=== PATIENT | male | born 1950 | race Caucasian/White ===

== ENCOUNTER → 2018-01-29 09:33 | Outpatient (CLI) | payer MEDICARE | END | disposition home or self-care (01) | LOC: D.CT 09:33 | DX: R93.8 Abnormal findings on diagnostic imaging of other specified body structures (principal) ==

== ENCOUNTER 2019-10-17 18:57 | Emergency (ER) | payer MEDICARE ==
[~2019-10-17] VITALS: Ht 175.3 cm; Wt 87.3 kg
[2019-10-17 19:26] VITALS: Ht 175.3 cm; Wt 87.3 kg
[2019-10-17] MEDS ORDERED: COLACE100 MG PO (20:16)
[2019-10-17] MEDS ORDERED: MIRALAX17 GM PO (20:16)
[2019-10-17] MEDS ORDERED: FLOMAX0.4 MG PO (20:32)
[2019-10-17] MEDS ORDERED: SMZ-TMP DS 800-1 TAB PO (20:32)
[2019-10-17 20:56] VITALS: BP 142/72
== END 2019-10-17 21:00 | disposition home or self-care (01) ==
LOC: D.ER 18:57
DX: K56.41 Fecal impaction (principal); R33.9 Retention of urine, unspecified

== ENCOUNTER 2020-01-23 16:23 | Inpatient (IN) | payer MEDICARE ==
[~2020-01-23] VITALS: Ht 175.3 cm; Wt 78.0 kg
--- NOTE | ~2020-01-23 | OP ---
PATIENT NAME: JEFFREY NORWOOD MEDICAL RECORD: [id number] :46 LOCATION:D.MS [id number] ADMISSION DATE:01/23/20 SURGEON: DILAN TRUONG MD DATE OF OPERATION: 01/24/2020 PREOPERATIVE DIAGNOSES: 1. Bilateral lower back abscesses. 2. Chronic perineal skin wounds. 3. Hypertension. 4. Dyslipidemia. 5. Gastroesophageal reflux disease. 6. Rheumatoid arthritis. POSTOPERATIVE DIAGNOSES: 1. Bilateral lower back abscesses. 2. Chronic perineal skin wounds. 3. Hypertension. 4. Dyslipidemia. 5. Gastroesophageal reflux disease. 6. Rheumatoid arthritis. PROCEDURE: 1. I&D of bilateral lower back abscesses. 2. Perineal skin biopsies. SURGEON: Dilan Truong MD REPORT OF PROCEDURE: The patient was placed on the right lateral decubitus position and the back and perineal region were prepped and draped in sterile fashion. The patient had fluctuant, erythematous wounds/masses on the bilateral lower back. Knife was used to make transverse incision through these areas of fluctuance and there was a gross amount of purulent material encountered. Cultures were taken from each of these abscess pockets. We were able to feel around these pockets and eventually clean these all out and then irrigate with peroxide and saline solution. I then packed both wounds with 1/2 inch iodoform packing strips and cover these with clean gauze. On the buttock, especially on the right medial buttock, there was chronic ulcerated wounds present. A skin biopsy was taken of the edge of this ulcerated wound extending down into the wound bed. Any bleeding from this was treated with electrocautery. COMPLICATIONS: None. CONDITION: Stable. ANESTHESIA: General endotracheal. BLOOD LOSS: Minimal. TRANSINT:[id number] Voice Confirmation ID: [id number] DOCUMENT ID: [id number] OPERATIVE REPORT [id number] NORWOODJEFFREY GOMEZ DILAN TRUONG MD CC: INGRID PATRICIA [id number] DICTATION DATE: 01/24/20 1616 ELECTRIC RAZOR MECHANIC: 01/25/20 0045 ADM IN [place] [id number] [place] [id number]
[~2020-01-23 16:23] MED LIST: COLACE100 MG PO; FLOMAX0.4 MG PO; MIRALAX17 GM PO; SMZ-TMP DS 800-1 TAB PO
--- NOTE | 2020-01-23 16:40 | NUR ---
RECEIVED PATIENT A DIRECT ADMIT. ALERT AND ORIENTED. UP AD KASSI. NO S/S OF ACUTE DISTRESS NOTED. CALL LIGHT IN REACH. WILL CONTINUE TO MONITOR.
[2020-01-23] MEDS ORDERED: HYDROXYCHLOROQ200 MG PO (16:45)
[2020-01-23] MEDS ORDERED: ASPIRIN81 MG PO (16:46)
[2020-01-23] MEDS ORDERED: LOSARTAN-HCTZ1 EAC1 PO (16:48)
[2020-01-23] MEDS ORDERED: COZAAR25 MG PO (16:49)
[2020-01-23] MEDS ORDERED: NEURONTIN 300300 MG PO (16:50)
[2020-01-23] MEDS ORDERED: OMEPRAZOLE40 MG PO (17:16)
[2020-01-23 18:29] LABS: HEMATOCRIT 34.5 % (42.0-54.0); HEMOGLOBIN 11.7 g/dL (13.5-17.5); MCH 30.9 pg (26.0-34.0); MCHC 33.9 g/dL (31.0-37.0); MEAN PLATELET VOLUME 7.9 fL (7.4-10.4); PLATELET COUNT 353 10x3/uL (130-400); RBC 3.79 10x6/uL (4.20-6.10); WBC 22.6 10x3/uL (4.8-10.8)
--- NOTE | 2020-01-23 18:38 | NUR ---
RESTING IN BED WITH EYES OPEN. FAMILY AT BEDSIDE. NO C/O PAIN. NO S/S OF ACUTE DISTRESS NOTED. DENIES ANY NEEDS AT THIS TIME. CALL LIGHT IN REACH. WILL CONTINUE TO MONITOR.
[2020-01-23 18:40] LABS: ANION GAP 12.9 mmol/L (8-16); CALCIUM 8.2 mg/dL (8.5-10.1); CARBON DIOXIDE 25.5 mmol/L (21.0-32.0); CREATININE - SERUM 1.4 mg/dL (0.6-1.3); POTASSIUM - SERUM 4.4 mmol/L (3.5-5.1)
[2020-01-23 18:46] LABS: ALBUMIN 2.4 g/dL (3.4-5.0); BILIRUBIN - TOTAL 0.25 mg/dL (0.2-1.3); PROTEIN - SERUM 5.9 g/dL (6.4-8.2)
[2020-01-23 18:53] LABS: LYMPHOCYTES 9 % (15-50); MONOCYTES 1 % (2-11); NEUTROPHILS 86 % (40-80)
[2020-01-23 18:54] LABS: PLATELET ESTIMATE NORMAL
[2020-01-23 19:46] VITALS: BP 121/60; BMI 25.4
[2020-01-23 20:00] VITALS: BP 110/48
[2020-01-23 21:10] LABS: BILIRUBIN NEGATIVE (NEGATIVE); GLUCOSE NEGATIVE (NEGATIVE); KETONE NEGATIVE (NEGATIVE); NITRITE NEGATIVE (NEGATIVE); UROBILINOGEN NORMAL (NORMAL)
[2020-01-24] VITALS (12 sets, daily range): BP systolic 84–134; BP diastolic 31–64; Ht 175.3 cm; Wt 78.0 kg
--- NOTE | 2020-01-24 04:06 | NUR ---
ASSESSED AT THE BEGINNING OF THE SHIFT. PT IS ALERT AND ORIENTED, ABLE TO VERBALZIE NEEDS. ASSESSED HIS BUTTOCKS AND LOWER BACK FOR THE RAISED AREAS THAT ARE INFECTED. HE IS ABLE TO GET UP TO THE BATHROOM SAFELY AND ALSO WAS GIVEN A URINAL. AT THE BEGINNING OF THE SHIFT. HE WAS SEEN BY JEFF MORALES ORDERS NOTED. PAIN MEDS WERE GIVEN WHEN REQUESTED AND HE HAS BEEN QUIET IN BED DURING THE NIGHT.
--- NOTE | 2020-01-24 06:29 | NUR ---
AWAKE WATCHING THE WEATHER WITH NO COMPLAINTS VOICED.
[2020-01-24 07:22] LABS: APTT 25.7 SECONDS (22.8-39.4); INR 1.03 (0.85-1.17); PROTIME 13.5 SECONDS (11.6-15.0)
[2020-01-24 07:26] LABS: ANION GAP 12.6 mmol/L (8-16); CALCIUM 8.6 mg/dL (8.5-10.1); CARBON DIOXIDE 27.9 mmol/L (21.0-32.0); CREATININE - SERUM 1.2 mg/dL (0.6-1.3); MAGNESIUM - SERUM 1.5 mg/dL (1.8-2.4); PHOSPHOROUS 3.5 mg/dL (2.5-4.9); POTASSIUM - SERUM 4.5 mmol/L (3.5-5.1)
[2020-01-24 07:43] LABS: HEMATOCRIT 34.3 % (42.0-54.0); HEMOGLOBIN 11.5 g/dL (13.5-17.5); MCHC 33.5 g/dL (31.0-37.0); MCV 92.5 fL (80.0-100.0); MEAN PLATELET VOLUME 8.1 fL (7.4-10.4); PLATELET COUNT 386 10x3/uL (130-400); RBC 3.71 10x6/uL (4.20-6.10); RDW 15.2 % (11.5-14.5); WBC 20.7 10x3/uL (4.8-10.8)
[2020-01-24 08:03] LABS: EOSINOPHILS 1 % (0-7); LYMPHOCYTES 10 % (15-50); NEUTROPHILS 84 % (40-80); PLATELET ESTIMATE NORMAL
--- NOTE | 2020-01-25 02:11 | NUR ---
I have reviewed this patient and I concur with the Shift Assessment completed by the Licensed Practical Nurse today this shift.
[2020-01-25 07:05] LABS: BASOPHILS 0.3 % (0-2); EOSINOPHILS 1.2 % (0-7); HEMATOCRIT 30.9 % (42.0-54.0); HEMOGLOBIN 10.2 g/dL (13.5-17.5); IMMATURE GRANULOCYTES 2.1 % (0-5); MCH 30.1 pg (26.0-34.0); MCV 91.2 fL (80.0-100.0); MEAN PLATELET VOLUME 8.2 fL (7.4-10.4); MONOCYTES 8.3 % (2-11); NEUTROPHILS 77.1 % (40-80); PLATELET COUNT 329 10x3/uL (130-400); RBC 3.39 10x6/uL (4.20-6.10)
[2020-01-25 07:10] LABS: WBC 14.9 10x3/uL (4.8-10.8)
[2020-01-25 07:30] LABS: CALC OSMOLALITY 266 mosm/kg (275-300); CARBON DIOXIDE 24.2 mmol/L (21.0-32.0); CHLORIDE - SERUM 100 mmol/L (98-107); GLUCOSE 107 mg/dL (74-106); MAGNESIUM - SERUM 1.5 mg/dL (1.8-2.4); PHOSPHOROUS 3.3 mg/dL (2.5-4.9); SODIUM 133 mmol/L (136-145); eGFR NON AFRICAN AMERICAN 78 mL/min (90-120)
[2020-01-25 07:48] LABS: UREA NITROGEN 14 mg/dL (7-18)
--- NOTE | 2020-01-25 08:26 | NUR ---
RESTING IN BED, NO DISTRESS NOTED, ASKING ABOUT AM MEAL, DRESSING TO BUTTOCKS DRY AND INTACT, IV INFUSING,
[2020-01-25 09:57] VITALS: BP 120/54
[2020-01-25 14:09] VITALS: BP 130/53
[2020-01-25 17:04] VITALS: BP 123/84
--- NOTE | 2020-01-25 19:00 | NUR ---
ANSWERED PATIENT CALL LIGHT. PATIENT ALERT AND ORIENTED AND ASKING ABOUT GOING HOME. PATIENT READY TO GO HOME. PATIENT MENTIONED "LEAVING TOMORROW WHETHER THEY WANT ME TO OR NOT." EXPLAINED AMA STATUS TO PATIENT. PATIENT VERBALIZES UNDERSTANDING, STATES HE IS JUST STIR CRAZY AND WOULD RATHER "DEAL WITH THESE WOUNDS" OUTPATIENT. ENCOURAGED PATIENT TO TALK TO NURSE PRACTITIONER OR PHYSICIAN IN THE MORNING. NEW ORDER FOR DRESSING CHANGES PUT IN, REMOVED PACKING PER ORDER AND DRESSED PER ORDER. PATIENT DENIES FURTHER NEEDS AT THIS TIME. CALL LIGHT REMAINS CLOSE TO PATIENT. CPOC.
[2020-01-25 21:00] VITALS: BP 126/59
--- NOTE | 2020-01-25 21:30 | NUR ---
ADMINISTERED HS MEDICATIONS. PATIENT TOLERATED WELL. DENIES FURTHER NEEDS AT THIS TIME. CALL LIGHT CLOSE. CPOC.
--- NOTE | 2020-01-26 00:56 | NUR ---
RESTING WITH NO SIGNS OR SYMPTOMS OF DISTRESS AT THIS TIME. RESPIRATIONS ARE EVEN AND UNLABORED. CALL LIGHT CLOSE. CPOC.
[2020-01-26 05:35] LABS: BASOPHILS 0.3 % (0-2); EOSINOPHILS 1.6 % (0-7); HEMATOCRIT 31.3 % (42.0-54.0); HEMOGLOBIN 10.5 g/dL (13.5-17.5); IMMATURE GRANULOCYTES 2.2 % (0-5); LYMPHOCYTES 12.1 % (15-50); MCH 30.5 pg (26.0-34.0); MCHC 33.5 g/dL (31.0-37.0); MONOCYTES 8.7 % (2-11); NEUTROPHILS 75.1 % (40-80); PLATELET COUNT 306 10x3/uL (130-400); RBC 3.44 10x6/uL (4.20-6.10); RDW 14.7 % (11.5-14.5); WBC 14.8 10x3/uL (4.8-10.8)
[2020-01-26 06:01] LABS: CALC OSMOLALITY 266 mosm/kg (275-300); CALCIUM 8.2 mg/dL (8.5-10.1); CARBON DIOXIDE 23.5 mmol/L (21.0-32.0); CHLORIDE - SERUM 101 mmol/L (98-107); CREATININE - SERUM 0.8 mg/dL (0.6-1.3); GLUCOSE 96 mg/dL (74-106); MAGNESIUM - SERUM 1.5 mg/dL (1.8-2.4); PHOSPHOROUS 3.9 mg/dL (2.5-4.9); SODIUM 134 mmol/L (136-145); eGFR NON AFRICAN AMERICAN > 90 mL/min (90-120)
[2020-01-26 06:11] LABS: UREA NITROGEN 9 mg/dL (7-18)
[2020-01-26 09:01] VITALS: BP 127/54
[2020-01-26 12:25] VITALS: BP 134/60
--- NOTE | 2020-01-26 13:54 | NUR ---
PT ALERT X 4. INSISTING HE NEEDS TO GO HOME TODAY. DRESSINGS CHANGED ON BUTTOCKS. FAMILY AT BEDSIDE. BED LOW, CALL LIGHT IN REACH. NO OTHER NEEDS AT THIS TIME.
[2020-01-26] MEDS ORDERED: BACTRIM DS TAB1 EAC1 PO (14:23)
--- NOTE | 2020-01-26 15:49 | MORECARE ---
CASE MANAGEMENT DISCHARGE SUMMARY PATIENT: JEFFREY NORWOOD UNIT: [id number] ADM DATE: 01/23/20 AGE: 69 : 48 SEX: M ROOM/BED: D.2208 AUTHOR: LIZ BOX PHYSICIAN: REFERRING PHYSICIAN: INGRID PATRICIA MD DATE OF SERVICE: 01/26/20 Discharge Plan Patient Name: JEFFREY NORWOOD [facility] [facility] 1950 Planned Disposition: Home with Home Health Anticipated Discharge Date: Discharge Date: Expected LOS: Initial Reviewer: [email or web address] Initial Review Date: 01/23/2020 Generated: 01/26/20 4:48 pm DCPIA - Discharge Planning Initial Assessment Updated by [email or web address]: Delmy Arias on 01/26/20 3:46 pm * Is the patient Alert and Oriented? Yes * How many steps to enter\exit or inside your home? 0/0 * PCP bruce * [facility] * ADLs Independent * Equipment None * Community resources currently utilized None * Additional services required to return to the preadmission environment? Yes * Can the patient safely return to the preadmission environment? Yes * Has this patient been hospitalized within the prior 30 days at any hospital? No Patient Name: JEFFREY NORWOOD Page 22431 at 1549 All edits/amendments must be made on the electronic document DICTATION DATE: 01/26/20 1548 COLLECTION ANALYST: SAÚL 01/26/20 1548 RPT#: [id number] DC DATE: STATUS: ADM IN [facility] [address] [place] [address] END OF REPORT
--- NOTE | 2020-01-26 16:19 | MORECARE ---
CASE MANAGEMENT DISCHARGE SUMMARY PATIENT: JEFFREY NORWOOD UNIT: [id number] ADM DATE: 01/23/20 AGE: 69 : 48 SEX: M ROOM/BED: D.2204 AUTHOR: ISAURO,DOC PHYSICIAN: REFERRING PHYSICIAN: INGRID PATRICIA MD DATE OF SERVICE: 01/26/20 Discharge Plan Patient Name: JEFFREY NORWOOD Facility: [facility]:[place] : 1950 Planned Disposition: Home with Home Health Anticipated Discharge Date: Discharge Date: Expected LOS: Initial Reviewer: [id number] Initial Review Date: 01/23/2020 Generated: 01/26/20 5:18 pm Comments DCP- Discharge Planning Updated by [email or web address]: Delmy Arias on 01/26/20 3:[address] Patient Name: JEFFREY NORWOOD Admission Status: Elective Accout number: [id number] Admission Date: 01-23-2020 : 1950 Admission Diagnosis: Attending: INGRID PATRICIA Current LOS: 3 Anticipated DC Date: Planned Disposition: Home with Home Health Primary Insurance: MEDICARE A & B Discharge Planning Comments: CM met with patient to complete initial dc planning assessment. CM educated patient on the CM role and verbal consent given by patient to complete assessment. CM verified patient's address, phone number, and emergency contact phone numbers. Patient lives at home alone and is independent. At discharge patient plans to return home and feels this is a safe discharge. CM discussed availability of home health, rehab services, and medical equipment. Pt is in agreement to have [facility] provide wound care. JADEN verbalized. CM called Sissy at [facility] and faxed clinicals. [facility] states they will at Patient denied known discharge needs at this time. DC IMM delivered. Transportation provider at discharge will be . CM will continue to follow and will assist as needed with dc plans/needs. Computer Systems Software Architect: Delmy Arias DCPIA - Discharge Planning Initial Assessment Updated by [email or web address]: Delmy Arias on 01/26/20 3:46 pm * Is the patient Alert and Oriented? Yes * How many steps to enter\exit or inside your home? 0/0 * PCP bruce * Pharmacy [facility] * ADLs Independent * Equipment None * Community resources currently utilized None * Additional services required to return to the preadmission environment? Yes * Can the patient safely return to the preadmission environment? Yes * Has this patient been hospitalized within the prior 30 days at any hospital? No External Providers [facility] Next Contact Date: Service Request Date: Service Type: Resolution: Reviewer: Comments: Last DP export: 01/26/20 2:48 p Patient Name: JEFFREY NORWOOD Page 82896 at 1619 All edits/amendments must be made on the electronic document DICTATION DATE: 01/26/201618 SERICULTURIST: SAÚL 01/26/201618 RPT#: [id number] DC DATE: STATUS: ADM IN [facility] [address] [place] [address] END OF REPORT
--- NOTE | 2020-01-26 16:43 | NUR ---
DISCHARGE PAPERWORK SIGNED, ALL QUESTIONS ANSWERED. IV TO LEFT FOREARM DC'D, TIP INTACT. ESCORTED OUT VIA WHEELCHAIR.
--- NOTE | 2020-01-27 14:31 | MORECARE ---
CASE MANAGEMENT DISCHARGE SUMMARY PATIENT: JEFFREY NORWOOD UNIT: [id number] ADM DATE: 01/23/20 AGE: 69 : 48 SEX: M ROOM/BED: D.2209 AUTHOR: ISAURO,DOC PHYSICIAN: REFERRING PHYSICIAN: INGRID PATRICIA MD DATE OF SERVICE: 01/27/20 Discharge Plan Patient Name: JEFFREY NORWOOD Facility: [facility]:[place] : 1950 Planned Disposition: Home with Home Health Anticipated Discharge Date: Discharge Date: 01/26/2020 Expected LOS: Initial Reviewer: [email or web address] Initial Review Date: 01/23/2020 Generated: 01/27/20 3:30 pm Comments DCP- Discharge Planning Updated by [email or web address]: Delmy Arias on 01/26/20 3:[address] Patient Name: JEFFREY NORWOOD Admission Status: Elective Accout number: [id number] Admission Date: 01-23-2020 : 1950 Admission Diagnosis: Attending: INGRID PATRICIA Current LOS: 3 Anticipated DC Date: Planned Disposition: Home with Home Health Primary Insurance: MEDICARE A & B Discharge Planning Comments: CM met with patient to complete initial dc planning assessment. CM educated patient on the CM role and verbal consent given by patient to complete assessment. CM verified patient's address, phone number, and emergency contact phone numbers. Patient lives at home alone and is independent. At discharge patient plans to return home and feels this is a safe discharge. CM discussed availability of home health, rehab services, and medical equipment. Pt is in agreement to have [facility] provide wound care. RONALD verbalized. CM called Sissy at [facility] and faxed clinicals. [facility] states they will at Patient denied known discharge needs at this time. DC IMM delivered. Transportation provider at discharge will be . CM will continue to follow and will assist as needed with dc plans/needs. Electron Beam Machine Welder Setter: Delmy Arias DCPIA - Discharge Planning Initial Assessment Updated by [email or web address]: Delmy Arias on 01/26/20 3:46 pm * Is the patient Alert and Oriented? Yes * How many steps to enter\exit or inside your home? 0/0 * PCP bruce * [facility] * ADLs Independent * Equipment None * Community resources currently utilized None * Additional services required to return to the preadmission environment? Yes * Can the patient safely return to the preadmission environment? Yes * Has this patient been hospitalized within the prior 30 days at any hospital? No Coverage Notice Reviewer: [email or web address] Celio Arias Notice Issued Date-Time: 01/26/2020 16:00 Notice Type: Patient Choice Letter Notice Delivered To: Patient Relationship to Patient: It Network Administrator Name: Delivery Method: PHONE - Phone Hannah Days: Prior Verbal Notification: Yes Recipient Understood Notice: Yes Recipient Signature: Med Rec Note Co-signed by Attending: Coverage Notice Comment: ronald jha clari Reviewer: [email or web address] Celio Arias Notice Issued Date-Time: 01/26/2020 16:00 Notice Type: IM Discharge Notice Notice Delivered To: Patient Relationship to Patient: It Network Administrator Name: Delivery Method: PHONE - Phone Hannah Days: Prior Verbal Notification: Yes Recipient Understood Notice: Yes Recipient Signature: Med Rec Note Co-signed by Attending: Coverage Notice Comment: bronson imm Last DP export: 01/26/20 3:19 p Patient Name: JEFFREY NORWOOD Page 81849 at 1431 All edits/amendments must be made on the electronic document DICTATION DATE: 01/27/201429 CORE EXTRUDER: SAÚL 01/27/201429 RPT#: [id number] DC DATE:01/26/20 STATUS: DIS IN [facility] [address] [place] [address] END OF REPORT
== END 2020-01-26 16:46 | disposition home health service (06) | DRG 603 ==
LOC: D.MS 16:23
PROVIDERS: Family Medicine; Surgery; ADMIT Family Medicine; ATTEND Family Medicine
PROC: 0H96XZZ Drainage of Back Skin, External Approach (ICD-10-PCS; principal; 2020-01-24 13:15)
PROC: 0WB Anatomical Regions, General, Excision (ICD-10-PCS; 2020-01-24 13:15)
DX: L02.212 Cutaneous abscess of back [any part, except buttock and flank] (principal); N17.9 Acute kidney failure, unspecified; I10 Essential (primary) hypertension; E78.5 Hyperlipidemia, unspecified; K21.9 Gastro-esophageal reflux disease without esophagitis; M06.9 Rheumatoid arthritis, unspecified; S30.91XA Unspecified superficial injury of lower back and pelvis, initial encounter; X58.XXXA Exposure to other specified factors, initial encounter; D64.9 Anemia, unspecified; A49.01 Methicillin susceptible Staphylococcus aureus infection, unspecified site

== ENCOUNTER 2020-02-11 09:30 | Inpatient (IN) | payer MEDICARE ==
[~2020-02-11] VITALS: Ht 175.3 cm; Wt 77.1 kg
[2020-02-11] VITALS (8 sets, daily range): BP systolic 100–123; BP diastolic 49–75; BMI 25.1
[~2020-02-11 09:30] MED LIST changes: +ASPIRIN81 MG PO; +BACTRIM DS TAB1 EAC1 PO; +COZAAR25 MG PO; +HYDROXYCHLOROQ200 MG PO; +LOSARTAN-HCTZ1 EAC1 PO; +NEURONTIN 300300 MG PO; +OMEPRAZOLE40 MG PO
[2020-02-11 10:18] LABS: ANION GAP 13.8 mmol/L (8-16); CALCIUM 9.4 mg/dL (8.5-10.1); CARBON DIOXIDE 23.7 mmol/L (21.0-32.0); CREATININE - SERUM 1.1 mg/dL (0.6-1.3); POTASSIUM - SERUM 4.5 mmol/L (3.5-5.1)
[2020-02-11 10:26] LABS: ALBUMIN 2.5 g/dL (3.4-5.0); BILIRUBIN - TOTAL 0.51 mg/dL (0.2-1.3); PROTEIN - SERUM 7.3 g/dL (6.4-8.2)
--- NOTE | 2020-02-11 10:35 | NUR ---
WOUND TO RT BUTTOCK NOTED WITH DRSG, FAMILY REPORTS SOME DRAINAGE. STG2 APPROX TAYLOR SIZE. INCISION TO LT LOWER BACK FROM RECENT I&D APPROX 3CM, 2ND INTENTION HEALING REPORTED. NO DRAINAGE NOTED.
[2020-02-11 10:48] LABS: HEMATOCRIT 30.7 % (42.0-54.0); HEMOGLOBIN 10.9 g/dL (13.5-17.5); MCH 31.1 pg (26.0-34.0); MCHC 35.5 g/dL (31.0-37.0); MCV 87.7 fL (80.0-100.0); MEAN PLATELET VOLUME 7.9 fL (7.4-10.4); PLATELET COUNT 368 10x3/uL (130-400); RDW 14.7 % (11.5-14.5); WBC 23.8 10x3/uL (4.8-10.8)
[2020-02-11 12:27] LABS: BILIRUBIN NEGATIVE (NEGATIVE); KETONE NEGATIVE (NEGATIVE); NITRITE NEGATIVE (NEGATIVE); UROBILINOGEN NORMAL (NORMAL)
[2020-02-11 13:04] LABS: LYMPHOCYTES 10 % (15-50); MONOCYTES 12 % (2-11); NEUTROPHILS 73 % (40-80); PLATELET ESTIMATE NORMAL
--- NOTE | 2020-02-11 15:35 | NUR ---
CLEOCIN 900 MG IV STOP TIME - 4647
--- NOTE | 2020-02-11 23:41 | NUR ---
I have reviewed this patient and I concur with the Shift Assessment completed by the Licensed Practical Nurse today this shift.
[2020-02-12] VITALS: BP 100/51
[2020-02-12 04:00] VITALS: BP 97/48
[2020-02-12 05:32] LABS: APTT 27.7 SECONDS (22.8-39.4); INR 1.15 (0.85-1.17); PROTIME 14.6 SECONDS (11.6-15.0)
[2020-02-12 05:35] LABS: ANION GAP 14.9 mmol/L (8-16); CALCIUM 8.1 mg/dL (8.5-10.1); CARBON DIOXIDE 21.2 mmol/L (21.0-32.0); CREATININE - SERUM 1.1 mg/dL (0.6-1.3); MAGNESIUM - SERUM 1.3 mg/dL (1.8-2.4); PHOSPHOROUS 3.8 mg/dL (2.5-4.9); POTASSIUM - SERUM 4.1 mmol/L (3.5-5.1)
[2020-02-12 05:49] LABS: BASOPHILS 0.1 % (0-2); EOSINOPHILS 0 % (0-7); HEMATOCRIT 30.2 % (42.0-54.0); HEMOGLOBIN 10.6 g/dL (13.5-17.5); IMMATURE GRANULOCYTES 2.4 % (0-5); LYMPHOCYTES 9.9 % (15-50); MCH 30.5 pg (26.0-34.0); MCHC 35.1 g/dL (31.0-37.0); NEUTROPHILS 83.6 % (40-80); PLATELET COUNT 339 10x3/uL (130-400); RBC 3.47 10x6/uL (4.20-6.10); RDW 14.6 % (11.5-14.5)
[2020-02-12 05:50] LABS: WBC 13.6 10x3/uL (4.8-10.8)
[2020-02-12 05:59] LABS: BILIRUBIN NEGATIVE (NEGATIVE); KETONE NEGATIVE (NEGATIVE); NITRITE NEGATIVE (NEGATIVE); UROBILINOGEN NORMAL (NORMAL)
--- NOTE | 2020-02-12 08:00 | NUR ---
ASSESSMENT PER FLOW SHEET. PATIENT IS WITHOUT DISTRESS. HE COMPLAINS OF LEFT FOOT PAIN.CALL LIGHT IN REACH
[2020-02-12 09:58] VITALS: BP 108/49
[2020-02-12 12:47] VITALS: BP 106/52
[2020-02-12 14:39] VITALS: Ht 175.3 cm; Wt 77.1 kg
[2020-02-12] MEDS ORDERED: PREDNISONE5 MG PO (15:57)
[2020-02-12 18:06] VITALS: BP 123/87
--- NOTE | 2020-02-12 18:50 | NUR ---
PATIENT IS WITHOUT NEEDS. HE WISHES FOR CREAM TO BE APPLIED TO HIS FEET MORE THAN BID.PAGE TO JEFF MAY APN
[2020-02-12 20:00] VITALS: BP 121/62
[2020-02-13] VITALS: BP 110/55
[2020-02-13 03:32] VITALS: BP 98/49
--- NOTE | 2020-02-13 05:27 | NUR ---
I have reviewed this patient and I concur with the Shift Assessment completed by the Licensed Practical Nurse today this shift.
[2020-02-13 06:33] LABS: ALBUMIN 1.9 g/dL (3.4-5.0); ALKALINE PHOSPHATASE 65 U/L (30-120); BILIRUBIN - TOTAL 0.37 mg/dL (0.2-1.3); CARBON DIOXIDE 18.8 mmol/L (21.0-32.0); CHLORIDE - SERUM 93 mmol/L (98-107); GLUCOSE 102 mg/dL (74-106); MAGNESIUM - SERUM 1.3 mg/dL (1.8-2.4); PHOSPHOROUS 3.5 mg/dL (2.5-4.9); POTASSIUM - SERUM 3.9 mmol/L (3.5-5.1); PROTEIN - SERUM 5.8 g/dL (6.4-8.2); SODIUM 123 mmol/L (136-145)
[2020-02-13 06:34] LABS: ALT (SGPT) 9 U/L (10-68); CALC OSMOLALITY 246 mosm/kg (275-300); CREATININE - SERUM 0.8 mg/dL (0.6-1.3); UREA NITROGEN 10 mg/dL (7-18); eGFR NON AFRICAN AMERICAN > 90 mL/min (90-120)
[2020-02-13 06:50] LABS: HEMOGLOBIN 9.4 g/dL (13.5-17.5); LYMPHOCYTES 14.4 % (15-50); MCH 30.8 pg (26.0-34.0); MCHC 34.8 g/dL (31.0-37.0); MCV 88.5 fL (80.0-100.0); MEAN PLATELET VOLUME 7.6 fL (7.4-10.4); NEUTROPHILS 82.4 % (40-80); PLATELET COUNT 366 10x3/uL (130-400); RBC 3.05 10x6/uL (4.20-6.10); RDW 14.8 % (11.5-14.5); WBC 14.3 10x3/uL (4.8-10.8)
--- NOTE | 2020-02-13 07:42 | NUR ---
ALERT AND ORIENTED. LUNGS CLEAR BILATERALLY. HEART SOUNDS S1 AND S2 HEARD IN ALL PATEL. BOWEL SOUNDS ACTIVE X 4. IV TO LEFT AC PATENT WITHOUT REDNESS. DENIES NEEDS. BED LOW. CALL LAURENT AND PERSONAL ITEMS IN REACH. WILL CONTINUE TO MONITOR.
[2020-02-13 09:00] VITALS: BP 114/43
[2020-02-13 13:13] VITALS: BP 99/50
--- NOTE | 2020-02-13 13:43 | NUR ---
RESTING IN BED. DENIES NEEDS. WILL CONTINUE TO MONITOR.
--- NOTE | 2020-02-13 14:50 | NUR ---
DRSG CHANGED TO LEFT BUTTOCKS PER ORDER.
[2020-02-13 17:17] VITALS: BP 113/49
--- NOTE | 2020-02-13 18:36 | NUR ---
IV LEAKING TO LEFT AC. REMOVED WITH TIP INTACT. SITED TO LEFT WRIST AFTER THREE ATTEMPTS WITH 22 GAUGE.
[2020-02-13 20:00] VITALS: BP 109/54
--- NOTE | 2020-02-13 20:00 | NUR ---
PATIENT RESTING IN BED WATCHING TV. NO S/S OF ACUTE DISTRESS. NO C/O AT THIS TIME. PATIENT HAS A LEFT WRIST IV, NORMAL SALINE @ 100 ML/HR. IV IS PATENT WITHOUT REDNESS, SWELLING, OR TENDERNESS. PATEIENT HAS X2 INCISIONS ON BOTH BUTTOCKS, BANDAIDS C/D/I. PATIENT HAS LEFT INNER BUTTOCKS DECUB. PATEINT IS UP WITH ASSIST. CALL LIGHT WITHIN REACH. WILL CONTINUE TO MONITOR.
[2020-02-14] VITALS: BP 124/54
[2020-02-14 04:00] VITALS: BP 104/52
--- NOTE | 2020-02-14 04:38 | NUR ---
I have reviewed this patient and I concur with the Shift Assessment completed by the Licensed Practical Nurse today this shift.
[2020-02-14 05:04] LABS: BASOPHILS 0.4 % (0-2); EOSINOPHILS 0.2 % (0-7); HEMATOCRIT 25.1 % (42.0-54.0); HEMOGLOBIN 8.6 g/dL (13.5-17.5); IMMATURE GRANULOCYTES 2.1 % (0-5); LYMPHOCYTES 7.6 % (15-50); MCH 30.2 pg (26.0-34.0); MCHC 34.3 g/dL (31.0-37.0); MCV 88.1 fL (80.0-100.0); MEAN PLATELET VOLUME 7.9 fL (7.4-10.4); MONOCYTES 10.3 % (2-11); NEUTROPHILS 79.4 % (40-80); PLATELET COUNT 278 10x3/uL (130-400); RBC 2.85 10x6/uL (4.20-6.10); RDW 14.8 % (11.5-14.5); WBC 12.2 10x3/uL (4.8-10.8)
[2020-02-14 05:15] LABS: ALBUMIN 1.8 g/dL (3.4-5.0); ALKALINE PHOSPHATASE 62 U/L (30-120); BILIRUBIN - TOTAL 0.22 mg/dL (0.2-1.3); CALC OSMOLALITY 248 mosm/kg (275-300); CALCIUM 7.5 mg/dL (8.5-10.1); CARBON DIOXIDE 20.2 mmol/L (21.0-32.0); CHLORIDE - SERUM 95 mmol/L (98-107); CREATININE - SERUM 0.7 mg/dL (0.6-1.3); GLUCOSE 86 mg/dL (74-106); MAGNESIUM - SERUM 1.3 mg/dL (1.8-2.4); PHOSPHOROUS 3.5 mg/dL (2.5-4.9); POTASSIUM - SERUM 3.5 mmol/L (3.5-5.1); PROTEIN - SERUM 5.5 g/dL (6.4-8.2); SODIUM 125 mmol/L (136-145); UREA NITROGEN 8 mg/dL (7-18); eGFR NON AFRICAN AMERICAN > 90 mL/min (90-120)
[2020-02-14 05:19] LABS: ALT (SGPT) 12 U/L (10-68)
[2020-02-14 09:45] VITALS: BP 117/54
[2020-02-14] MEDS ORDERED: NICODERM CQ1 EAC3 TRANSDERM (10:44)
[2020-02-14] MEDS ORDERED: FLORAJEN3 CAPS460 MG PO (10:44)
[2020-02-14] MEDS ORDERED: THERMOTABS 1 GM1 GM PO (10:45)
[2020-02-14] MEDS ORDERED: KEFLEX250 MG PO (10:48)
[2020-02-14 12:54] VITALS: BP 114/55
--- NOTE | 2020-02-14 12:54 | MORECARE ---
CASE MANAGEMENT DISCHARGE SUMMARY PATIENT: JEFFREY NORWOOD UNIT: [id number] ADM DATE: 02/11/20 AGE: 69 : 48 SEX: M ROOM/BED: D.2216 AUTHOR: LIZ BOX PHYSICIAN: REFERRING PHYSICIAN: DEISY FLOYD MD DATE OF SERVICE: 02/14/20 Discharge Plan Patient Name: JEFFREY NORWOOD Facility: [facility]:[place] : 1950 Planned Disposition: Home with Home Health Anticipated Discharge Date: Discharge Date: Expected LOS: Initial Reviewer: [email or web address] Initial Review Date: 02/11/2020 Generated: 02/14/20 1:54 pm External Providers External Provider[facility] Next Contact Date: Service Request Date: Service Type: Resolution: Reviewer: Comments: Patient Name: JEFFREY NORWOOD Page 78678 at 1254 All edits/amendments must be made on the electronic document DICTATION DATE: 02/14/20 1254 DATA PROCESSING MANAGER: SAÚL 02/14/20 1254 RPT#: [id number] DC DATE: STATUS: ADM IN [facility] [address] [place] [address] END OF REPORT
--- NOTE | 2020-02-14 13:04 | MORECARE ---
CASE MANAGEMENT DISCHARGE SUMMARY PATIENT: JEFFREY NORWOOD UNIT: [id number] ADM DATE: 02/11/20 AGE: 69 : 48 SEX: M ROOM/BED: D.2216 AUTHOR: ISAURO,DOC PHYSICIAN: REFERRING PHYSICIAN: DEISY FLOYD MD DATE OF SERVICE: 02/14/20 Discharge Plan Patient Name: JEFFREY NORWOOD Facility: [facility]:[place] : 1950 Planned Disposition: Home with Home Health Anticipated Discharge Date: Discharge Date: Expected LOS: Initial Reviewer: [email or web address] Initial Review Date: 02/11/2020 Generated: 02/14/20 2:03 pm Comments DCP- Discharge Planning Updated by [id number]: Janki Martinez on 02/14/20 12:[address] Patient Name: JEFFREY NORWOOD Admission Status: ER Accout number: [id number] Admission Date: 02-11-2020 : 1950 Admission Diagnosis:PRESSURE ULCER OF RIGHT BUTTOCK, STAGE 2 Attending: NASIM FLOYD Current LOS: 3 Anticipated DC Date: Planned Disposition: Home with Home Health Primary Insurance: MEDICARE A & B Discharge Planning Comments: CM met with patient to complete initial dc planning assessment. CM educated patient on the CM role and verbal consent given by patient to complete assessment. Patient lives at home alone independently in [place]. Dr Parekh is his PCP. At discharge patient plans to return home and feels this is a safe discharge. His nephew will be his cdl company driver home. CM discussed availability of home health, rehab services, and medical equipment. He is current with [facility] and will resume HH at [place]. IMM served and JADEN signed. Patient denied known discharge needs at this time. CM will continue to follow and will assist as needed with dc plans/needs. Laborer Chicken Farm: Janki Martinez DCPIA - Discharge Planning Initial Assessment Updated by [email or web address]: Janki Martinez on 02/14/20 12:58 pm * Is the patient Alert and Oriented? Yes * PCP BELEM * Pharmacy [facility] IN [place] * Preadmission Environment Home Alone * ADLs Independent * Equipment None * List name and contact numbers for known caregivers / representatives who currently or will assist patient after discharge: LAMONTE WOODARD [phone] * Verbal permission to speak to the caregivers and representatives has been obtained from the patient. N/A * Community resources currently utilized Home Health * Please name any agencies selected above. [facility] [place] * Additional services required to return to the preadmission environment? Yes * Can the patient safely return to the preadmission environment? Yes * Has this patient been hospitalized within the prior 30 days at any hospital? Yes Last DP export: 02/14/20 11:54 am Patient Name: JEFFREY NORWOOD Page 14393 at 1304 All edits/amendments must be made on the electronic document DICTATION DATE: 02/14/20 1304 SILK SCREEN PRINTER HELPER: SAÚL 02/14/20 1304 RPT#: [id number] DC DATE: STATUS: ADM IN [facility] [address] [place] [address] END OF REPORT
--- NOTE | 2020-02-14 14:55 | NUR ---
PATIENT RECIEVED DC INSTRUCTIONS. VERBALIZED UNDERSTANDING. NO QUESTIONS AT THIS TIME. IV REMOVED WITH CATH TIP INTACT. FAMILY AT BEDSIDE. UP AND DRESSED, WAITING ON WC. CALL LIGHT WITHINR EACH.
--- NOTE | 2020-02-18 16:05 | MORECARE ---
CASE MANAGEMENT DISCHARGE SUMMARY PATIENT: JEFFREY NORWOOD UNIT: [id number] ADM DATE: 02/11/20 AGE: 69 : 48 SEX: M ROOM/BED: D.2216 AUTHOR: LIZ BOX PHYSICIAN: REFERRING PHYSICIAN: DEISY FLOYD MD DATE OF SERVICE: 02/18/20 Discharge Plan Patient Name: JEFFREY NORWOOD Facility: [facility]:[place] : 1950 Planned Disposition: Home with Home Health Anticipated Discharge Date: Discharge Date: 02/14/2020 Expected LOS: Initial Reviewer: [email or web address] Initial Review Date: 02/11/2020 Generated: 02/18/20 5:05 pm Comments DCP- Discharge Planning Updated by [id number]: Janki Martinez on 02/14/20 12:[address] Patient Name: JEFFREY NORWOOD Admission Status: ER Accout number: [id number] Admission Date: 02-11-2020 : 1950 Admission Diagnosis:PRESSURE ULCER OF RIGHT BUTTOCK, STAGE 2 Attending: NASIM FLOYD Current LOS: 3 Anticipated DC Date: Planned Disposition: Home with Home Health Primary Insurance: MEDICARE A & B Discharge Planning Comments: CM met with patient to complete initial dc planning assessment. CM educated patient on the CM role and verbal consent given by patient to complete assessment. Patient lives at home alone independently in [place]. Dr Parekh is his PCP. At discharge patient plans to return home and feels this is a safe discharge. His nephew will be his driver guard home. CM discussed availability of home health, rehab services, and medical equipment. He is current with [facility] and will resume HH at [place]. IMM served and JADEN signed. Patient denied known discharge needs at this time. CM will continue to follow and will assist as needed with dc plans/needs. Lead Caregiver: Janki Martinez DCPIA - Discharge Planning Initial Assessment Updated by [email or web address]: Janki Martinez on 02/14/20 12:58 pm * Is the patient Alert and Oriented? Yes * PCP BELEM * Pharmacy [facility] IN [place] * Preadmission Environment Home Alone * ADLs Independent * Equipment None * List name and contact numbers for known caregivers / representatives who currently or will assist patient after discharge: LAMONTE WOODARD [phone] * Verbal permission to speak to the caregivers and representatives has been obtained from the patient. N/A * Community resources currently utilized Home Health * Please name any agencies selected above. [facility] [place] * Additional services required to return to the preadmission environment? Yes * Can the patient safely return to the preadmission environment? Yes * Has this patient been hospitalized within the prior 30 days at any hospital? Yes Coverage Notice Reviewer: [email or web address] Celio Martinez Notice Issued Date-Time: 02/14/2020 9:30 Notice Type: IM Discharge Notice Notice Delivered To: Patient Relationship to Patient: Support Services Tech Name: Delivery Method: HAND - Hand Delivered Hannah Days: Prior Verbal Notification: Recipient Understood Notice: Yes Recipient Signature: Yes Med Rec Note Co-signed by Attending: Coverage Notice Comment: imm served and explained Reviewer: [email or web address] Martinez Notice Issued Date-Time: 02/14/2020 9:30 Notice Type: Patient Choice Letter Notice Delivered To: Patient Relationship to Patient: Support Services Tech Name: Delivery Method: HAND - Hand Delivered Hannah Days: Prior Verbal Notification: Recipient Understood Notice: Yes Recipient Signature: Yes Med Rec Note Co-signed by Attending: Coverage Notice Comment: Last DP export: 02/14/20 12:04 pm Patient Name: JEFFREY NORWOOD Page 12540 at 1605 All edits/amendments must be made on the electronic document DICTATION DATE: 02/18/20 1605 CAD DRAFTER: SAÚL 02/18/20 1605 RPT#: [id number] DC DATE:02/14/20 STATUS: DIS IN [facility] [address] [place] [address] END OF REPORT
== END 2020-02-14 14:55 | disposition home or self-care (01) | DRG 593 ==
LOC: D.ER 09:30 → D.MS 14:08
PROVIDERS: Family Medicine; ADMIT Emergency Medicine; ATTEND Emergency Medicine
DX: L89.312 Pressure ulcer of right buttock, stage 2 (principal); E87.1 Hypo-osmolality and hyponatremia; D64.9 Anemia, unspecified; I10 Essential (primary) hypertension; E78.5 Hyperlipidemia, unspecified; K21.9 Gastro-esophageal reflux disease without esophagitis; M06.9 Rheumatoid arthritis, unspecified; M25.572 Pain in left ankle and joints of left foot